=== PATIENT | male | born 1970 | race Caucasian/White ===

== ENCOUNTER 2020-08-07 05:10 | Day surgery (SDC) | payer OTHER ==
[2020-08-05 17:40] VITALS: BMI 31.1
[2020-08-07 08:25] VITALS: TEMP 97.8
[2020-08-07] MEDS ORDERED: LIDOCAINE 1%/EPI 1:100000 (20 ML MULTI DOSE VIAL) ONE (08:34)
[2020-08-07] MEDS ORDERED: BUPIVACAINE HCL/PF 0.5% (5MG/ML) 10 ML VIAL ONE (08:44)
[2020-08-07] MEDS ORDERED: MIDAZOLAM HCL 2 MG/2 ML SINGLE DOSE VIAL ONE (10:18)
[2020-08-07] MEDS ORDERED: KETOROLAC TROMETHAMINE 30 MG/1 ML VIAL ONE (10:32)
[2020-08-07] MEDS ORDERED: ceFAZolin SODIUM 1 GM VIAL IVPB ONE (10:33)
[2020-08-07] MEDS ORDERED: ceFAZolin SODIUM 1 GM VIAL ONE (10:37)
[2020-08-07] MEDS ORDERED: LIDOCAINE HCL/PF 2% SDV 5ML VIAL ONE (10:46)
[2020-08-07] MEDS ORDERED: BUPIVACAINE HCL/PF 0.5% (5MG/ML) 10 ML VIAL IJ ONE (10:57)
[2020-08-07] MEDS ORDERED: LIDOCAINE 1%/EPI 1:100000 (20 ML MULTI DOSE VIAL) IJ ONE (10:57)
[2020-08-07 12:48] VITALS: BP 139/88; PULSE 64
== END 2020-08-07 12:30 | disposition home or self-care (01) ==
LOC: JASU-SURG 05:10
PROVIDERS: ATTEND Surgery
PROC: 0JB00ZZ Excision of Scalp Subcutaneous Tissue and Fascia, Open Approach (ICD-10-PCS; 2020-08-07)
PROC: 0JB50ZZ Excision of Left Neck Subcutaneous Tissue and Fascia, Open Approach (ICD-10-PCS; principal; 2020-08-07 10:00)
DX: D21.0 Benign neoplasm of connective and other soft tissue of head, face and neck (principal); L72.3 Sebaceous cyst
CPT/HCPCS: 88304-TC